=== PATIENT | female | born 1970 | race Caucasian/White ===

== ENCOUNTER 2017-07-23 15:03 | Emergency (ER) | payer OTHER ==
[~2017-07-23] VITALS: Ht 170.2 cm; Wt 92.5 kg
[2017-07-23 15:11] VITALS: Ht 170.2 cm; Wt 92.5 kg
[2017-07-23 15:30] VITALS: O2SAT 94
[2017-07-23] MEDS ORDERED: ONDANSETRON INJ 2 MG/ML 2 ML VIAL IV PRN (16:15)
--- NOTE | 2017-07-23 16:29 | EMERGENCY ROOM VISIT NOTE ---
History Report prepared by Nadege: Srinivas Snyder Under the Supervision of: Dr. Teja Velasquez M.D. First contact with patient: 16:07 Chief Complaint: CARDIAC ASSESSMENT Stated Complaint: CHEST PAIN,LOWER ABD PAIN Nursing Triage Summary: pt ambulated to triage reports I was to my family PCP today they did an EKG and told me to come here for eval , pt reports Midsternal cp and RLQ abdominal pain X 1 month seems worse today History of Present Illness The patient is a 47 year old female who presents to the Emergency Room with complaints of worsening chest pain that began a month ago. She rates her pain as a 7/10 in severity. She describes her pain as a pulled muscle and admits it is worsened in the morning and with a deep breath. The patient admits that she has a history of costochondritis that was acute and is now chronic. The patient also states that she has been experiencing abdominal pain located right below her right rib pain that she describes as stabbing. The patient states that her pain is not worsened with eating any particular food. She states that she has been experiencing worsening symptoms in the couple of weeks. The patient reports that her abdomen has been hard and admits that her abdomen is typically soft. She also reports that she has been experiencing intermittent emesis. The patient reports that she went to her PCP today who told her to report to the ED. She admits to a history of ankylosing spondylitis that she takes shots twice a month for. 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 She reports that she had foot surgery in November and her doctor warned her about a blood clot, which is what she is worried about. The patient states that she is allergic to Morphine but admits that Dilaudid helps with her pain. The patient denies a cholecystectomy. Source of History: patient Onset: a month ago Position: chest Symptom Intensity: 7/10 Quality: other Timing: worsening Modifying Factors (Worsening): breathing, other (in the morning) Associated Symptoms: + vomiting, + abdominal pain Review of Systems All systems have been listed, reviewed, and are negative other than those previously mentioned. Please see Additional Medical History Sheet. Past Medical & Surgical Medical Problems: (1) Ankylosing spondylitis of site in spine (2) Clemente esophagus Surgical Problems: (1) History of foot surgery Family History Cancer Social History Smoking Status: Current Every Day Smoker Alcohol Use: none Drug Use: none Housing Status: lives with family Occupation Status: unemployed Current/Historical Medications Scheduled Cyclobenzaprine Hcl (Flexeril), 10 MG PO TID Diclofenac Sodium (Topical) (Voltaren 1% Top Gel), 1 APPLN TOP PRN Hydrochlorothiazide (Hctz), 25 MG PO DAILY Pantoprazole (Protonix), 40 MG PO DAILY Ranitidine (Zantac), 150 MG PO BID Secukinumab (Cosentyx Sensoready Pen), 1 DOSE INJ MONTHLY Scheduled PRN Oxycodone/Acetaminophen 5MG/325MG (Percocet 5MG/325MG), 1 TABLET PO Q6H PRN for Pain Allergies Coded Allergies: Morphine (Verified Allergy, Severe, ITCHING, 07/23/17) Pregabalin (Verified Allergy, Intermediate, FACE & HAND SWELLING, 07/23/17) Sulfamethoxazole w/Trimethoprim (Verified Allergy, Unknown, PALPITATIONS, 07/23/17) Clarithromycin (Verified Adverse Reaction, Intermediate, HEART RACES, 07/23) Physical Exam Vital Signs Date Time Temp Pulse Resp B/P (MAP) Pulse Ox O2 Delivery O2 Flow Rate FiO2 07/23/17 22:04 36.9 107 18 158/117 98 07/23/17 18:23 144/98 07/23/17 17:33 105 17 93 07/23/17 17:31 117/79 07/23/17 17:03 108 19 93 07/23/17 17:01 103/75 07/23/17 16:42 108 07/23/17 16:33 110 17 146/75 97 07/23/17 15:30 94 Room Air 07/23/17 15:11 36.9 109 20 148/94 96 Room Air Physical Exam GENERAL: Patient awake, alert, oriented x 3. Patient follows commands. Patient does not appear toxic. Patient is adequately hydrated and well- nourished. Patient is in moderate distress and tearful at times. SKIN: No erythema, pallor, cyanosis or rash HEENT: Normal head, pupils equal, reactive to light and accommodation. Oral cavity and posterior pharynx appear normal. Neck: Without adenopathy, no neck vein distention. LUNGS: Clear to auscultation. No wheezes, no rales, no rhonchi. Patient in pain with deep inspiration. CHEST: Tenderness over mid sternum bilaterally. Pain is precipitated by palpation. HEART: No murmurs. No gallops. No rubs ABDOMEN: Obese. Marked tenderness over right upper quadrant extending into back. No masses, no rebound, no hepatomegaly or splenomegaly. EXTREMITIES: No signs of trauma. No pedal or pretibial edema. No calf or thigh tenderness. NEUROLOGIC: Cranial nerves II-XII within normal limits. No gross motor sensory function deficits. Medical Decision & Procedures ER Provider Diagnostic Interpretation: Radiology results as stated below per my review and radiologist interpretation: ABDOMINAL ULTRASOUND, RIGHT UPPER QUADRANT HISTORY: Right upper quadrant abdominal pain.. COMPARISON: None. FINDINGS: Pancreas: Obscured by overlying bowel gas. Liver: The liver is echogenic consistent with fatty change. 20 cm in length. Gallbladder: No gallbladder wall thickening. No gallstones. CBD: 4 mm. Right kidney: No hydronephrosis. IMPRESSION: 1. Mild hepatomegaly demonstrating fatty change. 2. Normal gallbladder. No gallstones. Electronically signed by: Justen Perry M.D. 07/23/2017 6:05 PM Dictated Date/Time: 07/23/2017 6:04 PM CHEST 2 VIEWS ROUTINE CLINICAL HISTORY: 47 years-old Female presenting with CHEST PAIN AND RUQ PAIN. TECHNIQUE: PA and lateral views of the chest were obtained. COMPARISON: None. FINDINGS: Cardiomediastinal silhouette normal. Lungs and pleural spaces clear. Osseous structures normal. Upper abdomen normal. IMPRESSION: 1. No acute cardiopulmonary disease. Electronically signed by: Edy Oreilly M.D. 07/23/2017 6:21 PM Dictated Date/Time: 07/23/2017 6:21 PM Laboratory Results 07/23/17 16:47 07/23/17 16:47 Test 07/23/17 16:47 07/23/17 20:25 Red Blood Count 5.16 M/uL (4.2-5.4) Mean Corpuscular Volume 86.0 fL (80-100) Mean Corpuscular Hemoglobin 29.8 pg (25-34) Mean Corpuscular Hemoglobin Concent 34.7 g/dl (32-36) RDW Standard Deviation 42.0 fL (36.4-46.3) RDW Coefficient of Variation 13.2 % (11.5-14.5) Mean Platelet Volume 9.1 fL (7.4-10.4) Anion Gap 5.0 mmol/L (3-11) Est Creatinine Clear Calc Drug Dose 108.9 ml/min Estimated GFR () 112.1 Estimated GFR (Non- 96.7 BUN/Creatinine Ratio 4.1 (10-20) Calcium Level 9.6 mg/dl (8.5-10.1) Troponin I < 0.015 ng/ml (0-0.045) Lipase 107 U/L (73-393) Urine Color YELLOW Urine Appearance CLEAR (CLEAR) Urine pH 7.0 (4.5-7.5) Urine Specific [place] 1.009 (1.000-1.030) Urine Protein NEG (NEG) Urine Glucose (UA) NEG (NEG) Urine Ketones NEG (NEG) Urine Occult Blood NEG (NEG) Urine Nitrite NEG (NEG) Urine Bilirubin NEG (NEG) Urine Urobilinogen NEG (NEG) Urine Leukocyte Esterase NEG (NEG) Laboratory results as stated above per my review. Medications Administered Medications (Trade) Dose Ordered Sig/Latha Route Start Time Stop Time Status Last Admin Dose Admin Hydromorphone HCl (Dilaudid Inj) 1 mg Q1HWA PRN IV 07/23/17 16:15 07/23/17 22:22 DC 07/23/17 18:43 1 MG ECG Indication: chest pain Rate (beats per minute): 103 Rhythm: sinus tachycardia Findings: nonspecific-ST abn, no ectopy ED Course 0: Past medical records reviewed. The patient was evaluated in room B06. A complete history and physical examination was performed. 1614: Ordered Zofran Injection 4 mg IV, Dilaudid Injection 1 mg IV. 2044: I reevaluated the patient and discussed her results with her. I offered her pain medication again, but she declined. I discussed her treatment plan and she agrees. The patient was discharged home. Medical Decision Nurses notes reviewed. Medical history sheet reviewed. I considered multiple diagnoses including myocardial infarction, chest wall pain, pericarditis, myocarditis, aortic emergencies, pulmonary embolism, congestive heart failure, GI causes, other significant cardiopulmonary disorders, cholelithiasis, cholecystitis, peptic/gastric ulcer, and gastritis. Multiple labs, EKG and imaging were obtained. Please see above. Chest x-ray does not reveal any kind of infiltrates or cardiopulmonary pathology. Ultrasound of the gallbladder was negative. The patient's potassium is low. White count is normal. The patient's pain seems most consistent with her underlying arthritis/ankylosing spondylitis/costochondritis. I do not believe she has a cardiopulmonary cause for her pain. The patient is stable to return home. She will resume her potassium. I suggested that she follow-up with pain management. The patient has Percocet at home to be taken when necessary. The patient is unable to take any NSAIDs. Medication Reconcilliation Current Medication List: was personally reviewed by me Blood Pressure Screening Patient's blood pressure: Normal blood pressure Impression Primary Impression: Costochondritis Additional Impressions: Chronic pain Hypokalemia Scribe Attestation The scribe's documentation has been prepared under my direction and personally reviewed by me in its entirety. I confirm that the note above accurately reflects all work, treatment, procedures, and medical decision making performed by me. Departure Information Dispostion Home / Self-Care Referrals Marlyn Phipps (PCP) Patient Instructions My [facility] Additional Instructions Follow-up with your data coordinator and family medicine physician as soon as possible. Resume your potassium. Percocet as needed for moderate to severe pain. Do not drive or operate machinery while taking Percocet. Follow-up with pain management. Problem Qualifiers
[2017-07-23] MEDS ORDERED: OXYC-57 PO (16:31)
[2017-07-23] MEDS ORDERED: SECU1INJ INJ (16:31)
[2017-07-23] MEDS ORDERED: HYDR25TA4 PO (16:31)
[2017-07-23] MEDS ORDERED: DICL1GEL12 TOP (16:31)
[2017-07-23] MEDS ORDERED: PANT40TA PO (16:31)
[2017-07-23] MEDS ORDERED: CYCL10TA6 PO (16:31)
[2017-07-23] MEDS ORDERED: ZNTT/150 PO (16:31)
[2017-07-23 17:00] LABS: HEMATOCRIT 44.4 % (37-47); MEAN CORPUSCULAR HEMOGLOBIN 29.8 pg (25-34); MEAN CORPUSCULAR HGB CONC 34.7 g/dl (32-36); MEAN PLATELET VOLUME 9.1 fL (7.4-10.4); PLATELET COUNT 455 K/uL (130-400); RED BLOOD COUNT 5.16 M/uL (4.2-5.4); WHITE BLOOD COUNT 11.75 K/uL (4.8-10.8)
[2017-07-23 17:27] LABS: BLOOD UREA NITROGEN 3 mg/dl (7-18); BUN/CREATININE RATIO 4.1 (10-20); CALCIUM 9.6 mg/dl (8.5-10.1); CARBON DIOXIDE 33 mmol/L (21-32); CHLORIDE 100 mmol/L (98-107); CREATININE 0.73 mg/dl (0.60-1.20); GLUCOSE 103 mg/dl (70-99); POTASSIUM 3.1 mmol/L (3.5-5.1); SODIUM 138 mmol/L (136-145)
[2017-07-23] MEDS: HYDROmorphone INJ 1 MG/ML SYR IV PRN ×2 (17:44→18:43)
--- NOTE | 2017-07-23 18:06 | DIAGNOSTIC IMAGING REPORT ---
ABDOMINAL ULTRASOUND, RIGHT UPPER QUADRANT HISTORY: Right upper quadrant abdominal pain.. COMPARISON: None. FINDINGS: Pancreas: Obscured by overlying bowel gas. Liver: The liver is echogenic consistent with fatty change. 20 cm in length. Gallbladder: No gallbladder wall thickening. No gallstones. CBD: 4 mm. Right kidney: No hydronephrosis. IMPRESSION: 1. Mild hepatomegaly demonstrating fatty change. 2. Normal gallbladder. No gallstones. Electronically signed by: Justen Perry M.D. 07/23/2017 6:05 PM Dictated Date/Time: 07/23/2017 6:04 PM
--- NOTE | 2017-07-23 18:22 | DIAGNOSTIC IMAGING REPORT ---
CHEST 2 VIEWS ROUTINE CLINICAL HISTORY: 47 years-old Female presenting with CHEST PAIN AND RUQ PAIN. TECHNIQUE: PA and lateral views of the chest were obtained. COMPARISON: None. FINDINGS: Cardiomediastinal silhouette normal. Lungs and pleural spaces clear. Osseous structures normal. Upper abdomen normal. IMPRESSION: 1. No acute cardiopulmonary disease. Electronically signed by: Edy Oreilly M.D. 07/23/2017 6:21 PM Dictated Date/Time: 07/23/2017 6:21 PM
[2017-07-23 20:36] LABS: MANUAL MICROSCOPIC REQUIRED? NO; REVIEW REQ? NO; URINE APPEARANCE CLEAR (CLEAR); URINE BILIRUBIN NEG (NEG); URINE COLOR YELLOW; URINE NITRITE NEG (NEG); URINE SPECIFIC GRAVITY 1.009 (1.000-1.030); UROBILINOGEN NEG (NEG); ZZUR CULT IF INDIC CLEAN CATCH NO
[2017-07-23 22:04] VITALS: BP 158/117; PULSE 107; TEMP 36.9; O2SAT 98
== END 2017-07-23 22:06 | disposition home or self-care (01) ==
LOC: C.EDB 15:05
DX: M94.0 Chondrocostal junction syndrome [Tietze] (principal); E87.6 Hypokalemia; G89.29 Other chronic pain; R10.11 Right upper quadrant pain

== ENCOUNTER → 2017-07-26 | Outpatient (CLI) | payer OTHER ==
[~2017-07-26] MED LIST: CYCL10TA6 PO; DICL1GEL12 TOP; HYDR25TA4 PO; OPTIRAY 320 IV PRN; OXYC-57 PO; PANT40TA PO; SECU1INJ INJ; ZNTT/150 PO
--- NOTE | 2017-07-26 12:44 | DIAGNOSTIC IMAGING REPORT ---
CT ANGIOGRAM OF THE CHEST CLINICAL HISTORY: Atypical chest pain. COMPARISON STUDY: Chest x-ray dated 07/23/2017. TECHNIQUE: Following the IV administration of 91 cc of Optiray 320, CT angiogram of the chest was performed from the upper abdomen to the thoracic inlet utilizing the pulmonary embolus protocol. Images are reviewed in the axial, sagittal, and coronal planes. 3-D MIPS images are created and assessed. IV contrast was administered without complication. A dose lowering technique was utilized adhering to the principles of ALARA. The Examination is modestly degraded by motion artifact. CT DOSE: 477.03 mGycm FINDINGS: Thyroid: Imaged portions of the thyroid gland are normal in size and attenuation. Thoracic aorta: The thoracic aorta is normal in caliber and demonstrates standard 3-vessel arch anatomy. No dissection is seen. Pulmonary vasculature: The pulmonary trunk is normal in caliber. There are no filling defects identified in main, lobar, or segmental pulmonary branches to suggest pulmonary embolus. Heart: The heart is normal in size and configuration, and without pericardial effusion. Lungs and pleural spaces: Evaluation of the lung parenchyma is modestly degraded by motion artifact. No airspace consolidation or pleural effusion is seen. Linear atelectasis is present in the lower lobes. The trachea and central airways are clear. Mediastinum: There is no mediastinal lymphadenopathy. [place]: Clear. Axillae: There is no axillary lymphadenopathy. Upper abdomen: There is a small hiatal hernia. Partially visualized upper abdominal viscera is otherwise within normal limits. Skeletal structures: No lytic or blastic bony lesions are seen. IMPRESSION: 1. There is no evidence of pulmonary embolus in the main, lobar, or segmental pulmonary arteries. 2. There is no airspace consolidation or pleural effusion. 3. Hiatal hernia. Electronically signed by: Titus Miller M.D. 07/26/2017 12:43 PM Dictated Date/Time: 07/26/2017 12:33 PM
== END | disposition home or self-care (01) ==
LOC: C.CTS 12:01
PROVIDERS: ATTEND Nurse Practitioner
DX: R79.89 Other specified abnormal findings of blood chemistry (principal); R07.81 Pleurodynia; F17.200 Nicotine dependence, unspecified, uncomplicated